=== PATIENT | male | born 1945 ===

== ENCOUNTER → 2020-06-24 | Outpatient (CLI) | payer OTHER ==
[~2020-06-24] MED LIST: AMLODIPINE BESY10 MG PO; ATORVASTATIN CA10 MG PO; GABAPENTIN800 M1 PO; LANTUS SOL100 UNIT/1; LEVOTHYROXINE25 MCG PO; METFORMIN HCL1000 M2 PO
== END | disposition home or self-care (01) ==
LOC: LAB 07:00 → RAD 07:00 → ADM 08:15 → EDSTATUS 07-01 08:15 → CIR.AMB 07-01 08:15
PROVIDERS: ATTEND Surgery
DX: N52.8 Other male erectile dysfunction (principal); Z20.828 Contact with and (suspected) exposure to other viral communicable diseases; Z01.810 Encounter for preprocedural cardiovascular examination; Z01.812 Encounter for preprocedural laboratory examination; Z01.811 Encounter for preprocedural respiratory examination